=== PATIENT | female | born 1960 | race Caucasian/White ===

== ENCOUNTER 2019-08-30 15:07 | Emergency (ER) | payer OTHER ==
[2019-08-30] MEDS ORDERED: Adenocard IV 6 MG/2 ML IV ONE (15:22)
--- NOTE | 2019-08-30 15:42 | XRAY ---
Indication: Short of breath. Comparison: August 09, 2009. Portable chest again demonstrates normal heart and lungs. Bony thorax intact with mild degenerative changes. No new/acute findings.
[2019-08-30 15:59] LABS: Absolute Neutrophil Ct (ANC) 6.24 (1.4-6.9); BASOPHIL % 0.5 % (0.0-0.4); Basophil (Absolute #) 0.05 (0-0.4); Eosinophil % 1.6 % (0.00-5.0); Eosinophil (Absolute #) 0.16 (0-0.5); Hematocrit 41.6 % (35-47); Hemoglobin 13.1 gm/dl (12.0-16.0); Lymphocyte (Absolute #) 2.88 (1.0-4.6); Lymphocytes % 28.6 % (24.0-44.0); Mean Cell Volume 82.2 fl (78-100); Mean Corpuscular Hemoglobin 25.9 pg (26-32); Mean Corpuscular Hgb Concent. 31.5 g/dl (32-36); Mean Platelet Volume 10.9 fl (7.5-11.0); Monocyte (Absolute #) 0.73 (0.0-1.3); Monocytes % 7.3 % (0.0-12.0); Platelet Count 353 K/mm3 (150-450); Red Blood Count 5.06 M/mm3 (4.1-5.4); White Blood Count 10.1 K/mm3 (4.0-10.5)
[2019-08-30] MEDS ORDERED: Sodium Chloride 0.9% 1000 ML 1,000 ML ONE (16:17)
[2019-08-30] MEDS: Sodium Chloride 0.9% 1000 ML 1,000 ML IV SCH (16:22)
[2019-08-30 16:44] LABS: INR 1.01 (0.8-3.0); PROTIME 11.4 SECONDS (9.95-12.35)
[2019-08-30 16:46] LABS: PTT 34.3 SECONDS (25.3-37.0)
[2019-08-30 16:50] LABS: ALBUMIN 4.6 g/dL (3.5-5.0); ALKALINE PHOSPHATASE 116 U/L (38-126); AMYLASE 91 U/L (30-110); BLOOD UREA NITROGEN 12 mg/dL (7-17); CHLORIDE 107 mmol/L (98-107); Carbon Dioxide 25 mmol/L (22-30); Creatinine 1 0.54 mg/dL (0.52-1.04); Glucose 98 mg/dL (74-106); LIPASE 156 U/L (23-300); NT PRO BNP 100 pg/mL (0-900); Potassium 3.9 mmol/L (3.5-5.1); SGOT/AST 32 U/L (14-36); SGPT/ALT 34 U/L (0-35); SODIUM 142 mmol/L (137-145); Total Protein 8.3 g/dL (6.3-8.2)
--- NOTE | 2019-08-30 17:06 | ERPHSYRPT ---
- History of Present Illness Time Seen by Provider: 08/30/19 15:20 Source: patient Exam Limitations: no limitations Patient Subjective Stated Complaint: Tachycardia Triage Nursing Assessment: Patient ambulated back to ED and transferred self to bed. Patient A+O x 3. Patient's skin pink, warm and dry. Patient went to meet and greet with Dr. Hoffman and she ordered and EKG. Patient's EKG showed Tachycarida so Dr. Hoffman wanted her to be eval at ER. Patient's lungs clear a/p lester. Heart tones audible and irregular. Patient denies pain or discomfort. Physician History: Patient is a 39-year-old female who was at a meet and greet with her new physician Dr. Hoffman when she was found to have a tachycardia of 150 or more and was sent to the ER. The patient reports that she has had episodes like this several times a day they usually last about 30 minutes they cause her no pain no dizziness no lightheadedness no shortness of breath. Timing/Duration: intermittent Activities at Onset: none Severity of Pain-Max: none Severity of Pain-Current: none Modifying Factors: Improves With: nothing Nitro Today/Relief: no nitro taken today Aspirin Treatment Today: no aspirin today Associated Symptoms: denies symptoms Prior Chest Pain/Cardiac Workup: no prior cardiac workup Allergies/Adverse Reactions: meperidine HCl [From Demerol] Allergy (Severe, Verified 11/06/11 21:11) Vomiting Home Medications: Albuterol 8 gm Mdi Hfa [Ventolin Hfa MDI] 8 gm IH BID 11/06/11 [History] Benazepril HCl 10 mg [Lotensin 10 MG] 10 mg PO DAILY 11/06/11 [History] Cinnamon Bark [Cinnamon] 500 mg PO 11/06/11 [History] Ezetimibe 10 mg [Zetia 10 MG] 10 mg PO DAILY 11/06/11 [History] Fexofenadine HCl [[place] Allergy] 180 mg PO DAILY 11/06/11 [History] Fluticasone Propionate cc [Flovent 110 Mcg COMMON CANISTER] 1 puff IH BID PRN 11/06/11 [History] Furosemide 20 mg [Lasix 20 mg] 20 mg PO DAILY 11/06/11 [History] Metformin HCl 1000 mg [Glucophage 1000 MG] 1,000 mg PO BID 11/06/11 [History] Zarephath-3 Fatty Acids/Fish Oil [Fish Oil 1,000 mg Capsule] 1,000 mg PO DAILY 11/06/11 [History] Oxybutynin Chloride 5 mg [Ditropan 5 MG] 5 mg PO BID 11/06/11 [History] Potassium Chloride 10 Meq Tab* [Klor Con 10MEQ] 10 meq PO DAILY 11/06/11 [Histor y] Pravastatin Sodium 80 mg PO HS 11/06/11 [History] Vitamin E (Dl,Tocopheryl Acet) [Vitamin E] 1,000 unit PO DAILY 11/06/11 [History] Hx Influenza Vaccination/Date Given: Yes Hx Pneumococcal Vaccination/Date Given: Yes Immunizations Up to Date: Yes Travel Risk - International Travel Have you traveled outside of the country in past 3 weeks: No - Coronavirus Screening Are you exhibiting any of the following symptoms?: No Close contact with a COVID-19 positive Pt in past 14-21 Days: No - Review of Systems Constitutional: No Fever, No Chills Eyes: No Symptoms Ears, Nose, & Throat: No Symptoms Respiratory: No Cough, No Dyspnea Cardiac: Palpitations, No Chest Pain, No Edema, No Syncope Abdominal/Gastrointestinal: No Abdominal Pain, No Nausea, No Vomiting, No Diarrhea Genitourinary Symptoms: No Dysuria Musculoskeletal: No Back Pain, No Neck Pain Skin: No Rash Neurological: No Dizziness, No Focal Weakness, No Sensory Changes Psychological: No Symptoms Endocrine: No Symptoms All Other Systems: Reviewed and Negative - Past Medical History Pertinent Past Medical History: Yes Neurological History: Other ENT History: No Pertinent History Cardiac History: Arrhythmia, High Cholesterol, Hypertension Respiratory History: Asthma, Sleep Apnea Endocrine Medical History: Diabetes Type II Musculoskeletal History: Arthritis GI Medical History: No Pertinent History History: No Pertinent History Psycho-Social History: No Pertinent History Female Reproductive Disorders: No Pertinent History 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 - Past Surgical History Past Surgical History: Yes Neuro Surgical History: Neurological Surgery Cardiac: Cardiac Catheterization Respiratory: No Pertinent History Gastrointestinal: No Pertinent History Genitourinary: No Pertinent History Musculoskeletal: Orthopedic Surgery, Other Female Surgical History: Section Other Surgical History: back surgery in 1998, headache due to spinal after vaginal delivery, carpal tunnel 2014 - Social History Smoking Status: Never smoker Exposure to second hand smoke: Yes Drug Use: none Patient Lives Alone: No - Nursing Vital Signs Nursing Vital Signs: Initial Vital Signs Pulse Rate 132 H 08/30/19 15:13 Respiratory Rate 15 08/30/19 15:13 Blood Pressure 147/91 08/30/19 15:13 O2 Sat by Pulse Oximetry 97 08/30/19 15:13 Pain Scale Pain Intensity 0 - Physical Exam General Appearance: no apparent distress, alert Eye Exam: PERRL/EOMI, eyes nml inspection Ears, Nose, Throat Exam: normal ENT inspection, moist mucous membranes Neck Exam: normal inspection, non-tender, supple Respiratory Exam: normal breath sounds, lungs clear, No respiratory distress Cardiovascular Exam: regular rate/rhythm, normal heart sounds, tachycardia, No edema Gastrointestinal/Abdomen Exam: soft, No tenderness, No mass Back Exam: normal inspection, No CVA tenderness, No vertebral tenderness Extremity Exam: normal inspection, normal range of motion Neurologic Exam: alert, oriented x 3, cooperative, normal mood/affect, nml cerebellar function, sensation nml, No motor deficits Skin Exam: normal color, warm, dry Lymphatic Exam: No adenopathy SpO2: 97 - Course Nursing assessment & vital signs reviewed: Yes EKG Interpreted by Me: RATE (149), Sinus Tach, NORMAL AXIS, NORMAL INTERVALS, Non-specific ST Changes, Other (Patient spontaneously converted to a normal sinus rhythm with a rate of [address]-T wave changes normal axis normal intervals.) - Radiology Exams Chest X-ray Interpretation: Reviewed by me, Negative Ordered Tests: Active Orders 24 hr Category Date Time Status Bicycle [employer] STAT Care 08/30/19 15:15 Active EKG-ER Only STAT Care 08/30/19 15:14 Active CHEST 1 VIEW (PORTABLE) Stat Exams 08/30/19 15:15 Completed AMYLASE Stat Lab 08/30/19 15:50 Completed CBC W DIFF Stat Lab 08/30/19 15:50 Completed CMP Stat Lab 08/30/19 15:50 Completed D-DIMER QUANTITATIVE Stat Lab 08/30/19 15:50 Received LIPASE Stat Lab 08/30/19 15:50 Completed Lactic Acid Stat Lab 08/30/19 16:10 Completed MAGNESIUM Stat Lab 08/30/19 15:50 Completed NT PRO BNP Stat Lab 08/30/19 15:50 Completed PROTIME WITH INR Stat Lab 08/30/19 15:50 Received PTT Stat Lab 08/30/19 15:50 Received TROPONIN Q3H Lab 08/30/19 15:50 Completed TROPONIN Q3H Lab 08/30/19 18:30 Ordered TROPONIN Q3H Lab 08/30/19 21:30 Ordered TROPONIN Q3H Lab 08/31/19 00:30 Ordered TROPONIN Q3H Lab 08/31/19 03:30 Ordered TSH [TSH, 3RD Generation] Stat Lab 08/30/19 15:50 Received UA W/RFX UR CULTURE Stat Lab 08/30/19 16:23 Ordered EKG ONCE RT 08/30/19 15:27 Completed Medication Summary Generic Name Dose Route Start Last Admin Trade Name Freq PRN Reason Stop Dose Admin Sodium Chloride 1,000 mls @ 100 mls/hr 08/30/19 15:15 08/30/19 16:22 Sodium Chloride 0.9% 1000 Ml IV 09/29/19 15:14 100 mls/hr .Q10H JEREMY Administration Discontinued Medications Generic Name Dose Route Start Last Admin Trade Name Freq PRN Reason Stop Dose Admin Adenosine 6 mg 08/30/19 15:22 Adenocard Iv 6 Mg/2 Ml IV 08/30/19 15:23 STAT ONE Adenosine Confirm 08/30/19 15:22 Adenocard Iv 6 Mg/2 Ml Administered 08/30/19 15:23 Dose 6 mg IV .ExpertFlyer-MED ONE Lab/Rad Data: Laboratory Result Diagrams 08/30/19 15:50 08/30/19 15:50 Laboratory Results 08/30/19 08/30/19 08/30/19 Range/Units 16:10 15:50 15:50 WBC (4.0-10.5) K/mm3 RBC (4.1-5.4) M/mm3 Hgb (12.0-16.0) gm/dl Hct (35-47) % MCV (78-100) fl MCH (26-32) pg MCHC (32-36) g/dl RDW (11.5-14.0) % Plt Count (150-450) K/mm3 MPV (7.5-11.0) fl Gran % (36.0-66.0) % Eos # (Auto) (0-0.5) Absolute Lymphs (auto) (1.0-4.6) Absolute Monos (auto) (0.0-1.3) Lymphocytes % (24.0-44.0) % Monocytes % (0.0-12.0) % Eosinophils % (0.00-5.0) % Basophils % (0.0-0.4) % Absolute Granulocytes (1.4-6.9) Basophils # (0-0.4) Sodium 142 (137-145) mmol/L Potassium 3.9 (3.5-5.1) mmol/L Chloride 107 (98-107) mmol/L Carbon Dioxide 25 (22-30) mmol/L Anion Gap 13.0 (5-15) MEQ/L BUN 12 (7-17) mg/dL Creatinine 0.54 (0.52-1.04) mg/dL Estimated GFR > 60.0 ML/MIN Glucose 98 (74-106) mg/dL Lactic Acid 1.9 (0.4-2.0) Calcium 10.0 (8.4-10.2) mg/dL Magnesium 2.0 (1.6-2.3) mg/dL Total Bilirubin 0.60 (0.2-1.3) mg/dL AST 32 (14-36) U/L ALT 34 (0-35) U/L Alkaline Phosphatase 116 (38-126) U/L Troponin I < 0.012 (0.000-0.034) ng/mL NT-Pro-B Natriuret Pep 100 (0-900) pg/mL Serum Total Protein 8.3 H (6.3-8.2) g/dL Albumin 4.6 (3.5-5.0) g/dL Amylase 91 (30-110) U/L Lipase 156 (23-300) U/L //20 Range/Units 15:50 WBC 10.1 (4.0-10.5) K/mm3 RBC 5.06 (4.1-5.4) M/mm3 Hgb 13.1 (12.0-16.0) gm/dl Hct 41.6 (35-47) % MCV 82.2 (78-100) fl MCH 25.9 L (26-32) pg MCHC 31.5 L (32-36) g/dl RDW 15.0 H (11.5-14.0) % Plt Count 353 (150-450) K/mm3 MPV 10.9 (7.5-11.0) fl Gran % 62.0 (36.0-66.0) % Eos # (Auto) 0.16 (0-0.5) Absolute Lymphs (auto) 2.88 (1.0-4.6) Absolute Monos (auto) 0.73 (0.0-1.3) Lymphocytes % 28.6 (24.0-44.0) % Monocytes % 7.3 (0.0-12.0) % Eosinophils % 1.6 (0.00-5.0) % Basophils % 0.5 (0.0-0.4) % Absolute Granulocytes 6.24 (1.4-6.9) Basophils # 0.05 (0-0.4) Sodium (137-145) mmol/L Potassium (3.5-5.1) mmol/L Chloride (98-107) mmol/L Carbon Dioxide (22-30) mmol/L Anion Gap (5-15) MEQ/L BUN (7-17) mg/dL Creatinine (0.52-1.04) mg/dL Estimated GFR ML/MIN Glucose (74-106) mg/dL Lactic Acid (0.4-2.0) Calcium (8.4-10.2) mg/dL Magnesium (1.6-2.3) mg/dL Total Bilirubin (0.2-1.3) mg/dL AST (14-36) U/L ALT (0-35) U/L Alkaline Phosphatase (38-126) U/L Troponin I (0.000-0.034) ng/mL NT-Pro-B Natriuret Pep (0-900) pg/mL Serum Total Protein (6.3-8.2) g/dL Albumin (3.5-5.0) g/dL Amylase (30-110) U/L Lipase (23-300) U/L - Progress Progress: improved Air Movement: good Blood Culture(s) Obtained: No Antibiotics given: No - Departure Departure Disposition: Home Clinical Impression: Supraventricular tachycardia Condition: Stable Critical Care Time: No Referrals: PURA HOFFMAN MD [Primary Care Provider] - Instructions: Tachycardia (DC) Prescriptions: Metoprolol Succinate 50 mg [Toprol Xl 50 MG] 50 mg PO DAILY 30 Days #30 tablet
[2019-08-30 17:10] LABS: Appearance CLEAR (CLEAR); Bilirubin NEGATIVE (NEGATIVE); Blood NEGATIVE Ery/ul (0-5); Glucose NEGATIVE (NEGATIVE); Ketones NEGATIVE (NEGATIVE); Leukocyte Esterase NEGATIVE (NEGATIVE); Nitrite NEGATIVE (NEGATIVE); Protein,Urine Dip NEGATIVE (Negative); Specific Gravity 1.004 (1.005-1.025); Urobilinogen NEGATIVE mg/dL (0-1)
[2019-08-30] MEDS: Adenocard IV 6 MG/2 ML IV ONE (17:10)
[2019-08-30 17:23] LABS: Bacteria NONE SEEN /HPF (NEGATIVE); RBC NONE SEEN /HPF (0-2)
[2019-08-30 17:27] VITALS: BP 153/79; PULSE 74
[2019-08-30 17:28] VITALS: O2SAT 97
== END 2019-08-30 17:27 | disposition home or self-care (01) ==
LOC: ED 15:07 → EDSTATUS 15:07 → ED 17:27
DX: I27.1 Kyphoscoliotic heart disease (principal); I10 Essential (primary) hypertension
CPT/HCPCS: 36000; 36415; 71045; 80053; 81001; 82150; 83605; 83690; 83735; 83880; 84443; 84484; 85025; 85379; 85610; 85730; 93005; 93041; 96360; 99284; J0153

== ENCOUNTER 2020-08-29 05:53 | Day surgery (SDC) | payer OTHER ==
[2020-08-29] MEDS ORDERED: Lactated Ringers 1,000 ML IV SCH (07:00)
[2020-08-29] MEDS ORDERED: DIPRIVAN 200 MG/20 ML IV ONE ×2 (07:26→07:54)
[2020-08-29 08:33] VITALS: PULSE 58
[2020-08-29 08:40] VITALS: BP 158/60; O2SAT 98
--- NOTE | 2020-08-29 09:35 | OP ---
SURGERY DATE/TIME: 08/29/2020 0739 PREOPERATIVE DIAGNOSIS: Screening colonoscopy. POSTOPERATIVE DIAGNOSIS: Normal colon. PROCEDURE: Colonoscopy. SURGEON: Quinton Pinzon M.D. ANESTHESIA: MAC by Nirav Moran CRNA. ESTIMATED BLOOD LOSS: None. SPECIMENS: None. DESCRIPTION OF PROCEDURE: After informed written consent was obtained, the patient was taken to the endoscopy suite. After anesthesia was titrated to desired level of consciousness, a digital rectal exam showed normal sphincter tone and no internal lesions. The scope was inserted into the rectum and sequentially the entire colonic mucosa was traversed. The level of cecum was reached and verified with direct visualization of ileocecal valve. Upon withdrawal careful mucosal inspection revealed no gross abnormalities. Prior to withdrawal retroflexion was performed and showed no internal lesions. The scope was removed and the patient was transferred to the recovery room in good condition.
== END 2020-08-29 09:00 | disposition home or self-care (01) ==
LOC: SDC 05:53
PROVIDERS: ATTEND Family Medicine
DX: Z12.11 Encounter for screening for malignant neoplasm of colon (principal); E11.9 Type 2 diabetes mellitus without complications; I10 Essential (primary) hypertension; Z79.899 Other long term (current) drug therapy
CPT/HCPCS: 82947; J2704